=== PATIENT | female | born 1995 | race Caucasian/White ===

== ENCOUNTER 2020-08-01 12:41 | Outpatient (REF) | payer OTHER, MEDICAID, SELFPAY | END 2020-08-01 12:42 | disposition home or self-care (01) | LOC: HO.LAB 12:41 | PROVIDERS: PCP Internal Medicine; Visit Provider Internal Medicine | DX: Z20.828 Contact with and (suspected) exposure to other viral communicable diseases (principal) | CPT/HCPCS: U0003 ==

== ENCOUNTER 2020-10-21 13:33 | Outpatient (REF) | payer OTHER, MEDICAID, SELFPAY ==
[2020-10-24 16:48] LABS: C. trachomatis RNA TMA NOT DETECTED (NOT DETECTED); N. gonorrhoeae RNA TMA NOT DETECTED (NOT DETECTED)
== END 2020-10-21 13:34 | disposition home or self-care (01) ==
LOC: HO.LAB 13:33
PROVIDERS: PCP Internal Medicine; Visit Provider Advanced Practice Midwife
DX: Z01.419 Encounter for gynecological examination (general) (routine) without abnormal findings (principal); Z11.3 Encounter for screening for infections with a predominantly sexual mode of transmission; Z11.8 Encounter for screening for other infectious and parasitic diseases
CPT/HCPCS: 36415; 87491; 87591

== ENCOUNTER 2025-06-22 10:22 | Outpatient (AMB) | payer OTHER, MEDICAID, SELFPAY ==
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
[2025-06-22 10:26] VITALS: BP 116/78; PULSE 92; RESP 16; TEMP 36.7; O2SAT 98; BMI 33.2
--- OUTSIDE RECORDS SUMMARY | 2025-06-22 12:38 | XMS_ITS | Encounter Summary ---
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 And Dumper Name Role Phone Judy Caceres MD Primary Care Provider [phone] Encounter Details Date Type Department Care Team (Late st Contact Info) Description 05/16/2017 Conversion Encounter [facility] [place] [address] [place] [address] Social History Tobacco Use Types Packs/Day Years Used Date Smoking Tobacco: Never Comments:Never smoker Comments Unknown Sex and Gender Information Value Date Recorded Sex Assigned at Not on file Legal Sex Female 4:47 PM EDT Gender Identity Not on file Sexual Orientation Not on file documented as of this encounter Plan of Treatment Not on file documented as of this encounter Visit Diagnoses Not on filedocumented in this encounter Care Teams Barrel Bung Remover And Dumper Relationship Specialty Start Date End Date Judy Caceres MD [address] [place] [address] PCP - General 05/10/17 11/28/22 documented as of this encounter
--- OUTSIDE RECORDS SUMMARY | 2025-06-22 12:38 | XMS_ITS | Clinical Summary ---
Author Organization [employer] Address [address] [facility] 7 [place] [address] Care Team Providers Care Finishing Technician Name Role Phone Unavailable Primary Care Provider Unavailabl e Encounters Date Type Department Care Team Description 04/19/2025 Telephone [facility] MEDICINE [address] [place] [phone] Thony Soto MD from Last 3 Months Social History Tobacco Use Types Packs/Day Years Used Date Smoking Tobacco: Never Assessed Comments Unknown Sex and Gender Information Value Date Recorded Sex Assigned at Not on file Legal Sex Female 1:51 PM EST Gender Identity Not on file Sexual Orientation Not on file Plan of Treatment Upcoming Encounters Date Type Department Care Team (Late st Contact Info) Description 08/09/2025 1:15 PM EST Office Visit [facility] MEDICINE [address] [place] [phone] Janell Borden NP [address] [place] [address] Health Maintenance Due Date Last Done Comments Depression Screening 1997 HIV Screening 1997 SDOH Screening 1997 Disability Screening 1997 Alcohol/Substance Use Screening 2009 Tobacco Screening 2009 Family Planning (PISQ) 2012 HPV Vaccines (1 - 3-dose series) 2012 Hepatitis C Screening 2015 DTaP/Tdap/Td Vaccines (1 - Tdap) 2016 Pap Smear 2018 COVID-19 Vaccine (3 - 2024-2 6 season) 2025 02/19/2021, 01/29/2021 Influenza Vaccine (#1) 2025 Zoster Vaccines (1 of 2) 2047 RSV Patients and Patients Aged 60 years or older (1 - 1-dose 75+ series) 2072 Hepatitis B Vaccines Completed 08/08/2017, 03/08/2017, 02/05/2017 HIB Vaccines Aged Out No longer eligi ble based on patient's age to complete this topic Hepatitis A Vaccines Aged Out No long er eligible based on patient's age to complete this topic IPV Vaccines Aged Out No longer eligi ble based on patient's age to complete this topic Meningococcal B Vaccine Aged Out No l onger eligible based on patient's age to complete this topic Meningococcal Vaccine Aged Out No rajat dario eligible based on patient's age to complete this topic Pneumococcal Vaccine: Pediatrics (0 to 5 Years) and At-Risk Patients (6 to 49) Years Aged Out No longer eligible b ased on patient's age to complete this topic RSV under 20 months Aged Out No longe r eligible based on patient's age to complete this topic Rotavirus Vaccines Aged Out No longer eligible based on patient's age to complete this topic [place] [address] [place] [address] C3
--- OUTSIDE RECORDS SUMMARY | 2025-06-22 12:38 | XMS_ITS | Clinical Summary ---
Author Organization [facility] Address [address] [place] [phone] Phone Care Team Providers Care Windows System Admin Name Role Phone Unavailable Primary Care Provider Unavailabl e Immunizations Immunization Administration Dates Next Due DTaP 5 12/04/2001, 9,07/18/1998, 998,01/13/1998 HPV, Quadrivalent 07/18/2012,03/17/2012,01/02/20 12 Hep B, ped/adol 07/18/1998,05/10/1998,01/13/1998 Hib (PRP-T) 03/31/1999, 8,05/10/1998, 998 IPV 07/18/1998,05/10/1998,01/13/1998 Influenza Split 08/07/2012 MMR 12/04/2001,12/08/1998 Meningococcal Conj (Menactra) MCV4P 11/04/2009 OPV 12/04/2001 Tdap 11/04/2009 Varicella 04/07/2008,12/08/1998 Family History Relation Name Status Comments Brother 1 Alive Brother: Alive and well, Alive and well Brother 2 Alive Brother: Alive and well, Alive and well Mother Alive Mother: Alive a nd well Social History Tobacco Use Types Packs/Day Years Used Date Smoking Tobacco: Never Comments:Never smoker Comments Unknown Sex and Gender Information Value Date Recorded Sex Assigned at Not on file Legal Sex Female 4:47 PM EDT Gender Identity Not on file Sexual Orientation Not on file Last Filed Vital Signs Vital Sign Reading Time Taken Comments Blood Pressure 90/60 04/16/2013 12:00 AM EDT Pulse - - Temperature 36.7 C (98.1 F) 08/07/2012 12:00 AM EST Respiratory Rate - - Oxygen Saturation - - Inhaled Oxygen Concentration - - Weight 67.1 kg (148 lb) 04/16/2013 12:00 AM EDT Height 156.2 cm (5' 1.5 ) 04/16/2013 12:00 AM ED T Body Mass Index 27.51 04/16/2013 12:00 AM EDT Plan of Treatment Health Maintenance Due Date Last Done Comments DTaP,Tdap,and Td Vaccines (7 - Td or Tdap) 11/04/2019 11/04/2009, 12/04/2001, 03/31/1999, Additional history exists Influenza Vaccines (#1) 2025 08/07/2012 COVID-19 Vaccine ( season) 2025 Hepatitis B Vaccines Completed 07/18/1998, 05/10/1998, 01/13/1998 HIB Vaccines Completed 03/31/1999, 06/30, 05/10/1998, Additional history exists IPV Vaccines Completed 12/04/2001, 06/30, 05/10/1998, Additional history exists MMR Vaccines Completed 12/04/2001, 12/08/1998 Varicella Vaccines Completed 04/07/2008, 12/08/1998 Meningococcal Vaccine Aged Out 11/04/2009 No rajat dario eligible based on patient's age to complete this topic HPV Vaccines Completed 07/18/2012, 02/28, 01/02/2012 Hepatitis A Vaccines Aged Out No long er eligible based on patient's age to complete this topic Men B Vaccine Aged Out No longer elig ible based on patient's age to complete this topic Pneumococcal Vaccine Aged Out No long er eligible based on patient's age to complete this topic
== END 2025-06-22 10:56 | disposition home or self-care (01) ==
LOC: HO.HMCFMS 10:23
PROVIDERS: PCP Student in an Organized Health Care Education/Training Program; Visit Provider Student in an Organized Health Care Education/Training Program
DX: Z00.00 Encounter for general adult medical examination without abnormal findings (principal); Z87.828 Personal history of other (healed) physical injury and trauma; Z91.018 Allergy to other foods

== ENCOUNTER 2025-06-22 10:22 | Outpatient (REF) | payer MEDICAID, SELFPAY ==
[2025-06-22 18:41] LABS: MANUAL DIFF FLAG NO
[2025-06-22 18:42] LABS: Hematocrit 43.0 % (37.0-47.0); Hemoglobin 14.6 g/dl (12.0-16.0); Imm Gran Abs Auto 0.02 X10*3/uL (0.00-0.03); Imm Gran Pct Auto 0.3 % (0.0-0.4); Lymphocytes Absolute Auto 2.1 X10*3/uL (1.2-4.9); Mean Corpuscular HGB Conc 34.0 g/dl (31.0-35.0); Mean Corpuscular Hemoglobin 29.9 pg (27.0-33.0); Mean Corpuscular Volume 87.9 fL (80.0-98.0); NRBC Abs Auto 0.000 X10*3/uL (0.0-0.012); NRBC Pct Auto 0.0 /100WBC (0.0-0.2); Platelet Count 295 X10*3/uL (160-400); Red Blood Count 4.89 X10*6/uL (4.20-5.50); White Blood Count 7.4 X10*3/uL (4.8-10.8)
[2025-06-22 18:56] LABS: Appearance Urine Turbid; Glucose Urine UA Negative (Negative); PH 5.5 (5.0-9.0); Specific Gravity - Urine 1.025 (1.005-1.025)
[2025-06-22 18:58] LABS: Alanine Aminotransferase 18 U/L (0-31); Albumin Level 4.5 g/dL (3.5-5.0); Alkaline Phosphatase 46 U/L (39-117); Anion Gap 11 (12-20); Aspartate Amino Transferase 25 U/L (5-31); Blood Urea Nitrogen 9 mg/dL (9-16); Calcium 9.9 mg/dL (8.4-10.2); Carbon Dioxide 26 mmol/L (22-29); Chloride 107 mmol/L (96-108); Cholesterol 185 mg/dL (<200); Estimated Glomerular Filt Rate > 60; HDL Cholesterol 55 mg/dL (>40); Potassium 4.3 mmol/L (3.3-5.1); Sodium 140 mmol/L (135-145); Total Protein 7.7 g/dL (6.5-8.0); Triglycerides 96 mg/dL (<150)
[2025-06-22 19:40] LABS: Folate 10.8 ng/mL (> or = 4.0); Vitamin B12 281 pg/mL (200-900)
[2025-06-23 08:46] LABS: HBS Num1 251.54 mIU/mL (0-7.99); HIV Num 1 0.05 S/CO (0.00-0.99); ~HepC Num1 0.08 S/CO (0.00-0.79); ~Hepatitis B Surface Antibody REACTIVE (Nonreactive); ~Hepatitis C Antibody Nonreactive (Nonreactive)
[2025-06-23 11:00] LABS: HBsAGNum1 0.33 S/CO (0.00-0.99); Hepatitis B Surface Antigen Negative (Negative)
[2025-06-28 16:43] LABS: VITAMIN D (1,25 OH) D3 45 pg/mL; Vit D (1,25-Dihydroxy) Total 45 pg/mL (18-72); Vitamin D (1,25 OH) D2 <8 pg/mL
== END 2025-06-22 10:23 | disposition home or self-care (01) ==
LOC: HO.HKASLDS 10:22
PROVIDERS: PCP Student in an Organized Health Care Education/Training Program; Visit Provider Student in an Organized Health Care Education/Training Program
DX: Z76.89 Persons encountering health services in other specified circumstances (principal); Z13.9 Encounter for screening, unspecified; Z13.1 Encounter for screening for diabetes mellitus; Z13.6 Encounter for screening for cardiovascular disorders; Z13.220 Encounter for screening for lipoid disorders; Z13.31 Encounter for screening for depression; Z11.3 Encounter for screening for infections with a predominantly sexual mode of transmission; Z11.4 Encounter for screening for human immunodeficiency virus [HIV]; Z71.9 Counseling, unspecified; Z87.828 Personal history of other (healed) physical injury and trauma
CPT/HCPCS: 36415; 80053; 80061; 81003; 82607; 82652; 82746; 83036; 85025; 86706; 86803; 87340; 87389

== ENCOUNTER 2025-07-05 14:28 | Outpatient (AMB) | payer MEDICAID, SELFPAY ==
[2025-07-05 14:49] VITALS: BP 134/72; PULSE 82; RESP 20; TEMP 36.7; O2SAT 97; BMI 32.8
--- NOTE | 2025-07-05 14:49 | A.OFFPC_ITS ---
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 Required: No Accompanied by: Self / Same As Patient Allergies franck Allergy (Mild, Verified 07/05/25 14:49) close throat Tobacco use date assessed: 07/05/25 Dental Screening Dental Screen Date: 07/05/25 Did you have a dental visit in the last 12 months?: Yes Did you have a dental problem in the last 6 months where you did not have access to dental care?: No Was dental information given to patient?: Patient has dentist HPI HPI Comments History of Present Illness Details History of Present Illness The patient is a 29-year-old female presenting for a wellness visit and discussion of lab results. Vitamin B12 deficiency: - The patient's Vitamin B12 level was no goyo to be slightly low at 281 pg/mL, with the cutoff being 200 pg/mL. - The patient was advised to purchase Vi tamin B12 supplements over the counter. Class 1 obesity: - The patient's body mass index (BMI) is 32.8, categorizing her as having class 1 obesity. - The patient has a history of weight fl uctuations, previously reaching a weight of 210 pounds and currently working towards a goal of 175 pounds. - She has been actively managing her dmitriy ght through diet and exercise, without the assistance of a office services associate. Review of Systems 10-point ROS reviewed and negative excep t as noted in HPI Past Medical History Health Maintenance - Hepatitis B vaccination confirmed by r eactive surface antibodies. - Discussion on the importance of folate supplementation for preparation. Physical Exam General: Well-appearing, in no acute distress. Vital signs: Within normal limits. HEENT: Normocephalic, atraumatic. PERRLA, EOMI. Conjunctiva clear, sclera an icteric. Oropharynx clear, mucous membranes moist. TMs intact bilaterally. Neck: Supple, no lymphadenopathy, no thyromegaly, no JVD or carotid bruits. Cardiovascular: RRR, normal S1/S2, no murmurs, rubs, or gallops. Peripheral pulses 2+ and symmetric. No edema. Respiratory: Lungs clear to auscultation bilaterally, no wheezes, rales, or rhonchi. Normal effort. Abdomen: Soft, non-tender, non-distended. Normoactive bowel sounds. No hepatosplenomegaly, no masses. MSK: Full range of motion, no joint swelling or deformity. Normal gait. Skin: Warm, dry, intact. No rashes, lesions, or pallor. Neuro: Alert and oriented x3. Cranial nerves II-XII intact. Strength 5/5 throughout. Sensation intact. Reflexes 2+ symmetric. Normal coordination and gait. Psych: Appropriate mood and affect. Normal judgment and insight. Plan 1. Vitamin B12 Deficiency - Recommend [id number] Vitamin B12 supplementation. 2. Class 1 Obesity - Encourage continued weight management through diet and exercise. - Discussed BMI and its implications for cardiovascular risk. Discussion Notes During the visit, I discussed the patient's lab results, highlighting the slightly low Vitamin B12 level and recommending supplementation. We also reviewed her BMI, categorizing her as class 1 obesity, and emphasized the importance of weight management through diet and exercise. I reassured her about her current health status and encouraged her to continue her efforts in maintaining a healthy lifestyle. Patient was informed and verbally consented to the use of an ambient scribe for clinic note documentation during this visit. Patient Instructions - Take Vitamin B12 supplements as advise d. - Continue with current diet and exercis e regimen to manage weight. - Consider folate supplementation if sarah nning for . Total time spent caring for the patient today was 30 minutes. This includes time spent before the visit reviewing the chart, time spent documenting, and time spent reviewing laboratory results, medications, performing a medically necessary evaluation, counseling on diagnoses. [facility] Surgical History No pertinent past surgical history Family History Father No problems noted. Mother No problems noted. Maternal Grandfather Diabetes Hypertension Cancer Paternal Aunt Gynecologic cancer Maternal Aunt Diabetes Hypertension Maternal Uncle Diabetes Hypertension Son In good health Brother In good health Maternal Grandfather Colon cancer Diabetes Maternal Aunt Breast cancer Social History Housing: House Alcohol intake: current Alcohol intake frequency: does not drink Patient Tobacco Use Status: Never used Tobacco service: No Current occupational status: employed Gender identity: Female Cognitive needs: No Hearing needs: No Vision needs: Yes (rx glasses) Female Reproductive History Menstrual Age of Menarche: 13 Questionnaire PHQ-9 Over the last 2 weeks, how often have you been bothered by any of the following problems? 1. Little interest or pleasure in doing things: not at all 2. Feeling down, depressed, or hopeless: not at all 3. Trouble falling or staying asleep, or sleeping too much: several days 4. Feeling tired or having little energy: several days 5. Poor appetite or overeating: not at all 6. Feeling bad about yourself - or that you are a failure or have let yourself or your family down: not at all 7. Trouble concentrating on things, such as reading the newspaper or watching television: not at all 8. Moving or speaking so slowly that other people could have noticed. Or the opposite - being so fidgety or restless that you have been moving around a lot more than usual: not at all 9. Thoughts that you would be better off or of hurting yourself in some wa y: not at all Total score: 2 Depression Screening Interpretation: Negative Depression Screening Done: Yes Source: Developed by Drs. Jon Collins, Yolie Solares, Juan A Dean and colleagues, with an educational autumn from [employer]. Thrive Questionnaire Date Thrive assessed: 07/05/25 I am a: Patient What is your living situation today?: I have a steady place to live Within the past 12 months, did the food you bought not last and you didn't have the money to get more?: Never true Within the past 12 months, did you worry whether your food would run out before you got money to buy more?: Never true Do you have trouble paying for medicines?: No Do you have trouble getting transportation to medical appointments?: No Do you have trouble paying your heating and electricity bill?: No Do you have trouble taking care of your child, family member or friend?: No Do you have trouble with day-to-day activities such as bathing, preparing meals, shopping, managing finances, etc.?: No Are you currently unemployed and looking for a job?: No Are you interested in more education?: No Please select the resources that you would like help with: None Currently or been in a relationship where the following occur: No concerns reported THRIVE Score: 0 AUDIT C Alcohol Use Questionnaire (AUDIT-C) 1. How often do you have a drink containing alcohol?: Never 3. How often do you have six or more drinks on one occasion?: Never Total Score: 0 Score Reviewed/Action Taken: No FELI-7 AMB Questionnaire FELI-7 Date FELI - 7 assessed: 07/05/25 Feeling nervous, anxious, or on edge: 1 = Several days Not being able to stop or control worryin = Several days Worrying too much about different things: 1 = Several days Trouble relaxin = Not at all Being so restless that it is hard to sit still: 0 = Not at all Becoming easily annoyed or irritable: 1 = Several days Feeling afraid as if something awful might happen: 1 = Several days Total FELI-7 score (0-4 normal; 5-9 mild; 10-14 moderate; 15-21 severe): 5 Source: Developed by Drs. Jon Collins, Yolie Solares, Juan A Dean and colleagues, with an educational autumn from [employer]. Physical exam (Primary Care) Vital Signs: Last Vital Signs Temp 98.1 F 07/05/25 14:49 Pulse 82 07/05/25 14:49 Resp 20 07/05/25 14:49 BP 134/72 07/05/25 14:49 Pulse Ox 97 07/05/25 14:49 Oxygen Delivery Method Room Air 07/05/25 14:49 BMI result Body Mass Index 32.8 Tobacco/Smoking Status: Tobacco use Status Tobacco use date assessed 07/05/25 07/05/25 14:53 Patient Tobacco Use Status Never used Tobacco 07/05/25 14:53 PHQ-9: PHQ-9 Score PHQ-9: Total score 2 07/05/25 14:53 Depression Screening Interpretation: Negative Thrive Assessment: Date of Thrive Assessment Date Thrive assessed 07/05/25 07/05/25 14:53 Currently or been in a relationship where the following occur: No concerns reported Coding Level of Care Code Est Pt Level 3 (77654) Diagnoses Vitamin B12 deficiency E53.8 Class 1 obesity E66.811 Assessment & Plan Assessment & Plan (1) Vitamin B12 deficiency: Code(s): E53.8 - Deficiency of other specified B group vitamins (2) Class 1 obesity: Code(s): E66.811 - Obesity, class 1 Plan
--- OUTSIDE RECORDS SUMMARY | 2025-07-05 16:55 | XMS_ITS | Clinical Summary ---
Author Organization [employer] Address [address] [facility] 7 [place] [address] Care Team Providers Care Horse Racing Manager Name Role Phone Unavailable Primary Care Provider Unavailabl e Encounters Date Type Department Care Team Description 04/19/2025 Telephone [facility] [address] [place] [id number] Thony Soto MD from Last 3 Months [...] Description 08/09/2025 1:15 PM EST Office Visit [facility] [address] [place] [phone] Janell Borden NP [address] [place] [address] Health Maintenance Due Date Last Done Comments [...] patient's age to complete this topic [place] [address] [place] [address] C3
--- OUTSIDE RECORDS SUMMARY | 2025-07-05 16:55 | XMS_ITS | Encounter Summary ---
Author Organization [facility] Address [address] [place] [phone] Phone Care Team Providers Care Yarn Conditioner Name Role Phone Judy Caceres MD Primary Care Provider [phone] Encounter Details Date Type Department Care Team (Late st Contact Info) Description 05/16/2017 Conversion Encounter [facility] [address] [place] [address] Social History Tobacco Use Types Packs/Day Years [...] on filedocumented in this encounter Care Teams Yarn Conditioner Relationship Specialty Start Date End Date Judy Caceres MD [address] [place] [address] PCP - General 05/10/17 11/28/22 documented as of this encounter
--- OUTSIDE RECORDS SUMMARY | 2025-07-05 16:55 | XMS_ITS | Clinical Summary ---
Author Organization [facility] Address [address] [place] [phone] Phone Care Team Providers Care Railway Signal Electrician Name Role Phone Unavailable Primary Care Provider [...]
== END 2025-07-05 15:18 | disposition home or self-care (01) ==
LOC: HO.HMCFMS 14:29
PROVIDERS: PCP Student in an Organized Health Care Education/Training Program; Visit Provider Student in an Organized Health Care Education/Training Program
DX: E53.8 Deficiency of other specified B group vitamins (principal); E66.811 Obesity, class 1

== ENCOUNTER → 2025-07-05 14:28 | Outpatient (BNVA) | payer MEDICAID, SELFPAY | PROVIDERS: PCP Student in an Organized Health Care Education/Training Program; Visit Provider Student in an Organized Health Care Education/Training Program | DX: E66.811 Obesity, class 1 (principal); E53.8 Deficiency of other specified B group vitamins | CPT/HCPCS: 99212 ==